=== PATIENT | female | born 1985 | race Caucasian/White ===

== ENCOUNTER 2023-02-06 10:34 | Emergency (ER) | payer BC ==
[2023-02-06 11:12] VITALS: BP 140/99; PULSE 87
[2023-02-06 11:40] LABS: CORONAVIRUS COVID-19 NAA NEGATIVE (NEGATIVE); INFLUENZA A NAA NEGATIVE (NEGATIVE); INFLUENZA B NAA NEGATIVE (NEGATIVE); RESPIRATORY SYNCYTIAL VIR NAA NEGATIVE (NEGATIVE)
[2023-02-06] MEDS: Take Home: Amoxicillin/Clavulanate K 875-125 MG Tab, 6 Tab Pack PO ONE (13:15)
[2023-02-06] MEDS: Take Home: Amoxicillin 875 MG Tab, 6 Tab Pack PO ONE (13:21)
== END 2023-02-06 13:27 | disposition home or self-care (01) ==
LOC: LL.ED 10:34
DX: J06.9 Acute upper respiratory infection, unspecified (principal); H66.90 Otitis media, unspecified, unspecified ear; Z88.5 Allergy status to narcotic agent; Z91.018 Allergy to other foods; Z88.8 Allergy status to other drugs, medicaments and biological substances; Z20.822 Contact with and (suspected) exposure to COVID-19
CPT/HCPCS: 0241U; 99284; A9270-GY

== ENCOUNTER 2023-11-24 16:07 | Emergency (ER) | payer BC ==
[2023-11-24] MEDS ORDERED: Sodium Chloride 0.9% 10 ML Syringe FLUSH PRN (16:25)
[2023-11-24 16:40] LABS: BASOPHILS ABSOLUTE AUTO 0.01 K/uL (0.00-0.20); BASOPHILS PERCENT AUTO 0.1 % (0.0-2.0); EOSINOPHILS ABSOLUTE AUTO 0.06 K/uL (0.00-0.50); EOSINOPHILS PERCENT AUTO 0.9 % (0.0-5.0); HEMATOCRIT 43.4 % (34.0-46.0); HEMOGLOBIN 14.6 g/dL (11.7-15.5); LYMPHOCYTES ABSOLUTE AUTO 2.67 K/uL (0.50-3.50); LYMPHOCYTES PERCENT AUTO 39.1 % (10.0-50.0); MEAN CORPUSCULAR HEMOGLOBIN 30.2 pg (28.2-33.3); MEAN CORPUSCULAR HGB CONC 33.6 g/dL (31.7-36.0); MEAN CORPUSCULAR VOLUME 89.9 fL (84.0-98.0); MONOCYTES ABSOLUTE AUTO 0.42 K/uL (0.00-1.00); MONOCYTES PERCENT AUTO 6.1 % (2.0-14.0); NEUTROPHILS ABSOLUTE AUTO 3.67 K/uL (1.40-7.00); NEUTROPHILS PERCENT AUTO 53.8 % (45.0-80.0); PLATELET COUNT,PLT 217 K/uL (150-350); RED BLOOD CELL COUNT 4.83 M/uL (3.77-5.09); RED CELL DISTRIBUTION WIDTH 12.5 % (11.2-14.1); WHITE BLOOD CELL COUNT,WBC 6.8 K/uL (4.0-10.2)
[2023-11-24 17:01] LABS: ALANINE AMINOTRANSFERASE,ALT 35 U/L (12-78); ALBUMIN 4.3 g/dL (3.4-5.0); ALKALINE PHOSPHATASE 75 IU/L (46-116); ASPARTATE AMNIOTRANSFERASE,AST 18 U/L (15-37); BILIRUBIN TOTAL 0.7 mg/dL (0.2-1.0); BLOOD UREA NITROGEN,BUN 17 mg/dL (7-18); CALCIUM 9.2 mg/dL (8.5-10.1); CARBON DIOXIDE,CO2 25.9 mmol/L (21.0-32.0); CHLORIDE,CL 101 mmol/L (98-107); CREATININE 0.88 mg/dL (0.51-1.17); EST CRCL DRUG DOSING (CG) 82.64 mL/min; GLUCOSE RANDOM 119 mg/dL (70-99); POTASSIUM,K 3.4 mmol/L (3.5-5.1); PRO B-TYPE NATRIUR PEPT,BNPPRO 48 pg/mL (0-125); PROTEIN TOTAL,TP 7.8 g/dL (6.4-8.2); SODIUM,NA 138 mmol/L (136-145)
[2023-11-24 17:04] LABS: ANION GAP 14.5 meq/L (7-15); ESTIMATED GFR 85 mL/min (>=60)
[2023-11-24 17:05] LABS: CORONAVIRUS COVID-19 NAA NEGATIVE (NEGATIVE); INFLUENZA A NAA NEGATIVE (NEGATIVE); INFLUENZA B NAA NEGATIVE (NEGATIVE); RESPIRATORY SYNCYTIAL VIR NAA NEGATIVE (NEGATIVE)
[2023-11-24 17:21] LABS: APPEARANCE,URINE SLIGHTLY CLOUDY; BILIRUBIN,URINE NEGATIVE (NEGATIVE); COLOR,URINE LIGHT YELLOW; GLUCOSE,URINE NEGATIVE (NEGATIVE); KETONES,URINE NEGATIVE (NEGATIVE); LEUKOCYTE ESTERASE,URINE NEGATIVE (NEGATIVE); NITRITE,URINE NEGATIVE (NEGATIVE); OCCULT BLOOD,URINE TRACE-INTACT (NEGATIVE); PH,URINE 6.5 (5.0-9.0); PROTEIN,URINE NEGATIVE (NEGATIVE); UROBILINOGEN,URINE 0.2 E.U./dL (0.2-1.0)
[2023-11-24 17:22] LABS: EPITHELIAL CELLS,URINE NOT SEEN /LPF; RBC,URINE 0-5 /HPF; WBC,URINE 0-5 /HPF
[2023-11-24] MEDS: Aspirin 81 MG Tab.Chew PO ONE (17:25)
[2023-11-24 17:45] VITALS: BP 146/99; PULSE 70
== END 2023-11-24 19:45 | disposition home or self-care (01) ==
LOC: LL.ED 16:07
DX: R03.0 Elevated blood-pressure reading, without diagnosis of hypertension (principal); R53.83 Other fatigue; Z91.018 Allergy to other foods; Z88.5 Allergy status to narcotic agent; Z88.8 Allergy status to other drugs, medicaments and biological substances; Z90.710 Acquired absence of both cervix and uterus; Z68.31 Body mass index [BMI] 31.0-31.9, adult
CPT/HCPCS: 0241U; 36415; 71046; 80053; 81001; 83605; 83690; 83735; 83880; 84484; 85025; 85379; 93005; 99285; A9270-GY

== ENCOUNTER 2025-08-11 18:00 | Emergency (ER) | payer BC ==
[2025-08-11] MEDS: LORazepam 2 MG/ML SDV IVPUSH ONE (18:28)
[2025-08-11 18:29] LABS: BASOPHILS ABSOLUTE AUTO 0.02 K/uL (0.00-0.20); BASOPHILS PERCENT AUTO 0.3 % (0.0-2.0); EOSINOPHILS ABSOLUTE AUTO 0.09 K/uL (0.00-0.50); EOSINOPHILS PERCENT AUTO 1.1 % (0.0-5.0); IMMATURE GRAN ABSOLUTE AUTO 0.01 10^3/uL (0.00-0.04); IMMATURE GRAN PERCENT AUTO 0.1 % (0.0-0.4); LYMPHOCYTES ABSOLUTE AUTO 2.83 K/uL (0.50-3.50); LYMPHOCYTES PERCENT AUTO 36.0 % (10.0-50.0); MONOCYTES ABSOLUTE AUTO 0.51 K/uL (0.00-1.00); MONOCYTES PERCENT AUTO 6.5 % (2.0-14.0); NEUTROPHILS ABSOLUTE AUTO 4.41 K/uL (1.40-7.00); NEUTROPHILS PERCENT AUTO 56.0 % (45.0-80.0); PLATELET COUNT,PLT 235 K/uL (150-350); RED BLOOD CELL COUNT 4.55 M/uL (3.77-5.09); RED CELL DISTRIBUTION WIDTH 11.7 % (11.2-14.1); WHITE BLOOD CELL COUNT,WBC 7.9 K/uL (4.0-10.2)
[2025-08-11] MEDS: Sodium Chloride 0.9% 10 ML Syringe FLUSH PRN (18:40)
[2025-08-11 18:52] LABS: LACTIC ACID 1.2 mmol/L (0.4-2.0)
[2025-08-11] MEDS: Ondansetron 4 MG/2 ML SDV IVPUSH ONE (18:53)
[2025-08-11 18:57] LABS: INR 1.0 (0.9-1.1); PTT,PARTIAL THROMBOPLSTIN TIME 30.3 SEC (23.8-34.4)
[2025-08-11 19:05] LABS: ALANINE AMINOTRANSFERASE,ALT 52 U/L (12-78); ASPARTATE AMNIOTRANSFERASE,AST 31 U/L (15-37); BILIRUBIN TOTAL 0.5 mg/dL (0.2-1.0); BLOOD UREA NITROGEN,BUN 16 mg/dL (7-18); CARBON DIOXIDE,CO2 25.6 mmol/L (21.0-32.0); CHLORIDE,CL 101 mmol/L (98-107); CREATININE 0.85 mg/dL (0.51-1.17); EST CRCL DRUG DOSING (CG) 83.84 mL/min; GLUCOSE RANDOM 100 mg/dL (70-99); PRO B-TYPE NATRIUR PEPT,BNPPRO 77 pg/mL (0-125); PROTEIN TOTAL,TP 7.3 g/dL (6.4-8.2); SODIUM,NA 134 mmol/L (136-145)
[2025-08-11 19:06] LABS: ESTIMATED GFR 88 mL/min (>=60)
[2025-08-11 19:07] LABS: POTASSIUM,K 2.8 mmol/L (3.5-5.1)
[2025-08-11 19:15] VITALS: PULSE 64
[2025-08-11] MEDS: Potassium Bicarbonate/Cit Ac 20 MEQ Effervescent Tab PO ONE (19:30)
[2025-08-11] MEDS ORDERED: Lactated Ringers 1,000 ML IV SCH (19:30)
[2025-08-11] MEDS: Lactated Ringers 1,000 ML IV SCH (19:30)
[2025-08-11 20:28] VITALS: BP 120/84
[2025-08-11] MEDS: Take Home: LORazepam 0.5 MG Tab, 5 Tab Pack PO ONE (20:36)
== END 2025-08-11 20:42 | disposition home or self-care (01) ==
LOC: LL.ED 18:00
DX: F41.9 Anxiety disorder, unspecified (principal); I10 Essential (primary) hypertension; E66.9 Obesity, unspecified; Z68.26 Body mass index [BMI] 26.0-26.9, adult; Z90.710 Acquired absence of both cervix and uterus; Z88.5 Allergy status to narcotic agent; Z91.018 Allergy to other foods
CPT/HCPCS: 36415; 71045; 80053; 82947; 83605; 83735; 83880; 84484; 85025; 85379; 85610; 85730; 86140; 93005; 93010; 96361; 96374; 96375; 99284; 99285-25; A9270-GY; J2060; J2405; J7120